=== PATIENT | female | born 1985 | race Caucasian/White ===

== ENCOUNTER 2021-01-12 22:51 | Emergency (ER) | payer OTHER ==
[~2021-01-12] VITALS: Ht 160 cm; Wt 142.0 kg
[2021-01-12 23:19] VITALS: Ht 160 cm; Wt 142.0 kg
[2021-01-13] MEDS ORDERED: IBU600 M2 PO (00:23)
[2021-01-13 00:28] VITALS: BP 107/67
== END 2021-01-13 00:49 | disposition home or self-care (01) ==
LOC: ED 22:51
DX: M79.601 Pain in right arm (principal); J45.909 Unspecified asthma, uncomplicated
CPT/HCPCS: J1885